=== PATIENT | male | born 1980 | race African-American/Black ===

== ENCOUNTER 2017-03-26 19:38 | Emergency (ER) | payer OTHER, BC ==
[~2017-03-26] VITALS: Ht 175.3 cm; Wt 94.0 kg
[~2017-03-26 19:38] MED LIST: BUPR-79 PO; BUSP5TAB59 PO; PRLSR20 PO
[2017-03-26 19:40] VITALS: TEMP 36.8; Ht 175.3 cm; Wt 94.0 kg
[2017-03-26] MEDS ORDERED: AMIT75TA2 PO (20:12)
[2017-03-26] MEDS ORDERED: SNG10 PO (20:12)
[2017-03-26] MEDS ORDERED: VLT/75 PO (20:12)
[2017-03-26] MEDS ORDERED: BSP15 PO (20:12)
--- NOTE | 2017-03-26 20:12 | EMERGENCY ROOM VISIT NOTE ---
History First contact with patient: 19:45 Chief Complaint: LACERATION/CUT (NON-SUTURE) Stated Complaint: LAC TO R THUMB Nursing Triage Summary: PT was packing up inmates belongings at [employer] "I have a cut now on my right thumb, not sure what I injured it on" PT denies pain. History of Present Illness The patient is a 36 year old male who presents to the Emergency Room with complaints of a laceration to his right thumb that he sustained at work. The patient reports working at the present. 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 He is unsure what he cut his thumb on. He denies any significant pain. No numbness or tingling. The patient is concerned about exposure risks. He is up-to-date on his tetanus shot. Review of Systems 6 system review negative. Please see pertinent positives in the history of present illness section. Past Medical/Surgical History Medical Problems: (1) Injury of left lower extremity (2) Nausea, vomiting, and diarrhea Family History Patient reports no known family medical history. Social History Smoking Status: Never Smoker Alcohol Use: occasionally Drug Use: none Marital Status: in relationship Occupation Status: employed Current/Historical Medications Scheduled Amitriptyline Hcl (Elavil), 75 MG PO HS Buspirone HCl (Buspirone HCl), 15 MG PO BID Diclofenac Sod (Diclofenac Sodium Dr), 75 MG PO BID Emtricitabine/Temofovir (Truvada 200/300MG), 1 TAB PO DAILY Montelukast Sod (Montelukast Sodium), 10 MG PO HS Omeprazole (Prilosec), 20 MG PO DAILY Raltegravir Potassium (Isentress), 400 MG PO BID Physical Exam Vital Signs Date Time Temp Pulse Resp B/P (MAP) Pulse Ox O2 Delivery O2 Flow Rate FiO2 03/26/17 22:10 76 20 170/79 99 03/26/17 19:40 36.8 79 18 131/73 96 Room Air Physical Exam VITALS: Vitals are noted on the nurse's note and reviewed by myself. Vital signs stable. GENERAL: 36-year-old male, in no acute distress, nondiaphoretic, well-developed well-nourished. SKIN: There is a 1 cm, superficial laceration to the pad of the right thumb. The edges do not gape apart with traction. It is not through the dermis. No subcutaneous fat is visible. No active bleeding. The wound appears clean. Sensation is intact.. HEAD: Normocephalic atraumatic. MUSCULOSKELETAL: Good flexion and extension of the right thumb. NEURO: Patient was alert and oriented to person place and time. Normal sensation to touch. No focal neurological deficits. Medical Decision & Procedures Laboratory Results 03/26/17 21:38 Red Blood Count 4.42, Mean Corpuscular Volume 90.3, Mean Corpuscular Hemoglobin 31.7, Mean Corpuscular Hemoglobin Concent 35.1, Mean Platelet Volume 9.4, Neutrophils (%) (Auto) 54.2, Lymphocytes (%) (Auto) 33.0, Monocytes (%) (Auto) 9.0, Eosinophils (%) (Auto) 1.9, Basophils (%) (Auto) 1.6, Neutrophils # (Auto) 1.69, Lymphocytes # (Auto) 1.03, Monocytes # (Auto) 0.28, Eosinophils # (Auto) 0.06, Basophils # (Auto) 0.05 03/26/17 21:38 Test 03/26/17 21:38 White Blood Count 3.12 K/uL (4.8-10.8) Red Blood Count 4.42 M/uL (4.7-6.1) Hemoglobin 14.0 g/dL (14.0-18.0) Hematocrit 39.9 % (42-52) Mean Corpuscular Volume 90.3 fL (80-100) Mean Corpuscular Hemoglobin 31.7 pg (25-34) Mean Corpuscular Hemoglobin Concent 35.1 g/dl (32-36) Platelet Count 289 K/uL (130-400) Mean Platelet Volume 9.4 fL (7.4-10.4) Neutrophils (%) (Auto) 54.2 % Lymphocytes (%) (Auto) 33.0 % Monocytes (%) (Auto) 9.0 % Eosinophils (%) (Auto) 1.9 % Basophils (%) (Auto) 1.6 % Neutrophils # (Auto) 1.69 K/uL (1.4-6.5) Lymphocytes # (Auto) 1.03 K/uL (1.2-3.4) Monocytes # (Auto) 0.28 K/uL (0.11-0.59) Eosinophils # (Auto) 0.06 K/uL (0-0.5) Basophils # (Auto) 0.05 K/uL (0-0.2) RDW Standard Deviation 39.3 fL (36.4-46.3) RDW Coefficient of Variation 11.9 % (11.5-14.5) Immature Granulocyte % (Auto) 0.3 % Immature Granulocyte # (Auto) 0.01 K/uL (0.00-0.02) Anion Gap 9.0 mmol/L (3-11) Est Creatinine Clear Calc Drug Dose 93.1 ml/min Estimated GFR () 86.4 Estimated GFR (Non- 74.5 BUN/Creatinine Ratio 11.1 (10-20) Calcium Level 9.0 mg/dl (8.5-10.1) Total Bilirubin 0.3 mg/dl (0.2-1) Aspartate Amino Transf (AST/SGOT) 78 U/L (15-37) Alanine Aminotransferase (ALT/SGPT) 62 U/L (12-78) Alkaline Phosphatase 72 U/L (45-117) Total Protein 8.0 gm/dl (6.4-8.2) Albumin 4.0 gm/dl (3.4-5.0) Globulin 4.0 gm/dl (2.5-4.0) Albumin/Globulin Ratio 1.0 (0.9-2) Hepatitis B Surface Antigen NEG (NEG) Hepatitis B Surface Antibody POS Hepatitis C Antibody NEG (NEG) HIV (1&2) Ab and P24 Ag, 4th Gener NEG (NEG) Medications Administered Medications (Trade) Dose Ordered Sig/Olivia Route Start Time Stop Time Status Last Admin Dose Admin Miscellaneous (Hiv Post Exposure Prophylaxis Kit) 1 ea NOW ONCE N/A 03/26/17 20:30 03/26/17 20:31 DC 03/26/17 22:07 1 EA ED Course The patient was seen and examined The case was discussed with supervising physician, Dr. Diaz who is in agreement with my treatment plan. I discussed treatment options with the patient. He is requesting prophylaxis. HIV counseling and consent was obtained Labs were drawn The patient was given a home pack of Truvada and Raltegravir he seemed happy with the plan and care The patient's blood pressure was elevated prior to discharge. He was informed of this. Discharge instructions were reviewed, and he was discharged in good condition Medical Decision Differential diagnosis: Laceration, wound infection, HIV/hepatitis exposure This patient is a 36-year-old male that presents to the emergency department with a superficial laceration to the right thumb that he sustained at work. He works in a [employer]. 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 He does not know what he cut his thumb on. The laceration is not deep. I did not find this a significant exposure; however , the patient was requesting prophylaxis. HIV screening and basic labs were performed. The wound was thoroughly cleansed here. He was provided with a home pack of Truvada and Raltegravir. He was instructed to wash the wound twice daily with soap and water. Apply Neosporin and a Band-Aid for the first few days. He will call [facility] first thing tomorrow morning for a follow-up appointment. He will also have his blood pressure rechecked. This chart was completed in part utilizing [employer] Speech Voice Recognition software. Attempts were made to minimize the grammatical errors, random word insertions, pronoun errors and incomplete sentences. Any formal questions or concerns about the content, text or information contained within the body of this dictation should be directly addressed to the provider for clarification. Medication Reconcilliation Current Medication List: was personally reviewed by me Blood Pressure Screening Patient's blood pressure: Elevated blood pressure Blood pressure disposition: Referred to PCP Impression Primary Impression: Laceration Departure Information Dispostion Home / Self-Care Condition GOOD Prescriptions Raltegravir Potassium (ISENTRESS) 400 Mg Tab 400 MG PO BID for 28 Days, #56 TAB Prov: Sapna Kapoor PA-C 03/26/17 Emtricitabine/Temofovir (Truvada 200/300MG) Tab 1 TAB PO DAILY for 28 Days, #28 TAB Prov: Sapna Kapoor PA-C 03/26/17 Referrals No Doctor, Assigned (PCP) Patient Instructions [facility] Additional Instructions You were evaluated in the emergency department for a superficial laceration to the right thumb. This is not considered a high risk exposure as there was no known exchange of bodily fluids. You were given prescriptions for prophylaxis per your request Please call [facility] tomorrow morning for a follow-up appointment. I would recommend cleaning the wound twice daily with soap and water. Apply Neosporin for the first 2 days. Cover the wound with a Band-Aid. Please watch for signs of infection such as increased redness, swelling, pain or fever.
[2017-03-26] MEDS ORDERED: HIV POST EXPOSURE PROPHYLAXIS KIT ONE (20:30)
[2017-03-26] MEDS ORDERED: RALT400T PO (21:22)
[2017-03-26] MEDS ORDERED: TRVHP PO (21:22)
[2017-03-26 22:01] LABS: BASO % 1.6 %; BASO ABS # 0.05 K/uL (0-0.2); COMPLETE YES; EOS % 1.9 %; HEMATOCRIT 39.9 % (42-52); IG% 0.3 %; LYMPH ABS # 1.03 K/uL (1.2-3.4); MEAN CELL VOLUME 90.3 fL (80-100); MEAN CORPUSCULAR HEMOGLOBIN 31.7 pg (25-34); MEAN CORPUSCULAR HGB CONC 35.1 g/dl (32-36); MEAN PLATELET VOLUME 9.4 fL (7.4-10.4); NEUT % 54.2 %; PLATELET COUNT 289 K/uL (130-400); RED BLOOD COUNT 4.42 M/uL (4.7-6.1); WHITE BLOOD COUNT 3.12 K/uL (4.8-10.8)
[2017-03-26 22:10] VITALS: BP 170/79; PULSE 76; O2SAT 99
[2017-03-26 22:24] LABS: BUN/CREATININE RATIO 11.1 (10-20); CREATININE 1.23 mg/dl (0.60-1.40); POTASSIUM 3.9 mmol/L (3.5-5.1)
[2017-03-26 22:37] LABS: HEPATITIS B AB POS
== END 2017-03-26 22:28 | disposition home or self-care (01) ==
LOC: C.EDB 19:39 → C.EDD 22:28
DX: S61.011A Laceration without foreign body of right thumb without damage to nail, initial encounter (principal); X58.XXXA Exposure to other specified factors, initial encounter; Y99.0 Civilian activity done for income or pay